=== PATIENT | male | born 1945 | race Caucasian/White ===

== ENCOUNTER 2024-04-01 10:41 | Day surgery (SDC) | payer MEDICARE ==
[2024-03-25 11:04] VITALS: BMI 29.8
[2024-04-01] MEDS ORDERED: Lidocaine 2% PF 5 ML VIAL ONE (13:19)
[2024-04-01] MEDS ORDERED: PROPOFOL 20 ML ONE (13:19)
[2024-04-01] MEDS ORDERED: CEFAZOLIN 2 GM VIAL ONE (13:23)
[2024-04-01] MEDS ORDERED: PHENYLEPHRINE-NS 100 MCG/ML 10 ML SYRINGE ONE (13:31)
[2024-04-01] MEDS ORDERED: Ondansetron PF 4 MG/2 ML Vial ONE (13:45)
[2024-04-01] MEDS ORDERED: Dexamethasone 20 MG/5 ML VIAL ONE (13:45)
[2024-04-01] MEDS ORDERED: fentaNYL PF 100 MCG/2 ML SYRINGE ONE (14:18)
[2024-04-01] MEDS ORDERED: HYDROcodone/Acetaminophen 5/325 mg Tablet ONE (15:49)
== END 2024-04-01 16:43 | disposition home or self-care (01) ==
LOC: SDC 10:41
PROVIDERS: ATTEND Urology
PROC: 0T7D8ZZ Dilation of Urethra, Via Natural or Artificial Opening Endoscopic (ICD-10-PCS; principal; 2024-04-01)
DX: N35.911 Unspecified urethral stricture, male, meatal (principal); E03.9 Hypothyroidism, unspecified; E78.00 Pure hypercholesterolemia, unspecified; F03.90 Unspecified dementia, unspecified severity, without behavioral disturbance, psychotic disturbance, mood disturbance, and anxiety; F32.A Depression, unspecified; K21.9 Gastro-esophageal reflux disease without esophagitis; M19.90 Unspecified osteoarthritis, unspecified site; Z88.1 Allergy status to other antibiotic agents; Z79.890 Hormone replacement therapy; Z79.899 Other long term (current) drug therapy
CPT/HCPCS: 52276; J1100; J2405; J2704; A4333